=== PATIENT | male | born 1995 | race African-American/Black ===

== ENCOUNTER 2018-04-20 12:10 | Emergency (ER) | payer OTHER | END 2018-04-20 13:06 | disposition home or self-care (01) | LOC: M ED 12:10 | DX: L30.9 Dermatitis, unspecified (principal); F17.210 Nicotine dependence, cigarettes, uncomplicated | CPT/HCPCS: 99282 ==

== ENCOUNTER 2018-07-26 10:52 | Emergency (ER) | payer OTHER | END 2018-07-26 12:10 | disposition home or self-care (01) | LOC: M ED 10:52 | DX: L72.3 Sebaceous cyst (principal) | CPT/HCPCS: 99283 ==

== ENCOUNTER 2019-11-22 11:09 | Emergency (ER) | payer OTHER ==
[~2019-11-22] VITALS: Ht 170.2 cm; Wt 75.0 kg
[~2019-11-22 11:09] MED LIST: BACT2CRE TOP; DIFL150T PO; KEFL500C17 PO; NAPR-837 PO; PEPC1TAB5 PO; PRED20TA PO
[2019-11-22] MEDS ORDERED: NAPROXEN 250 MG TAB PO ONE (12:30)
[2019-11-22 13:42] VITALS: BP 113/71
[2019-11-22] MEDS ORDERED: NAPR-837 PO (13:56)
--- NOTE | 2019-11-22 13:57 | REP ---
LEFT KNEE, FIVE VIEWS: There is no evidence of an acute fracture, dislocation or intrinsic bone disease. There is probably a small joint effusion. IMPRESSION: No fracture or dislocation. There is probably a small joint effusion. Electronically Signed by Nick Braga MD 11/22/2019 06:39 P
== END 2019-11-22 14:02 | disposition home or self-care (01) ==
LOC: M ED 11:09
DX: M25.562 Pain in left knee (principal); F17.200 Nicotine dependence, unspecified, uncomplicated